=== PATIENT | female | born 1985 | race Two or more races ===

== ENCOUNTER 2019-01-15 21:28 | Emergency (ER) | payer MEDICAID ==
[~2019-01-15] VITALS: Ht 165.1 cm; Wt 90.9 kg
[2019-01-15 21:48] VITALS: BP 157/48
== END 2019-01-16 02:10 | disposition left against medical advice (07) ==
LOC: ER 21:28
DX: R42 Dizziness and giddiness (principal); Z53.21 Procedure and treatment not carried out due to patient leaving prior to being seen by health care provider

== ENCOUNTER 2019-01-23 10:21 | Emergency (ER) | payer MEDICAID ==
[~2019-01-23] VITALS: Ht 165.1 cm; Wt 93.6 kg
[2019-01-23 11:41] LABS: BASOPHILS % 1.1 % (0.0-2.0); EOSINOPHILS % 3.9 % (0.0-5.0); HEMOGLOBIN. 7.5 g/dL (12.0-16.0); LYMPHOCYTES % 20.1 % (20.0-50.0); MEAN CORPUSCULAR HEMOGLOBIN 28.2 pg (28.0-32.0); MEAN CORPUSCULAR VOLUME 89.9 fL (81.0-99.0); MEAN PLATELET VOLUME 9.7 fl (7.4-10.4); MONOCYTES % 10.7 % (2.0-8.0); NEUTROPHILS % 64.2 % (40.0-76.0); PLATELET 271 x1000/uL (130-400); RED BLOOD CELL COUNT 2.67 mill/uL (4.2-5.4); RED CELL DISTRIBUTION WIDTH 16.7 % (11.6-14.6)
[2019-01-23 11:45] LABS: CHLORIDE 108 mEq/L (98-107)
[2019-01-23 11:50] VITALS: BP 156/56
[2019-01-23 11:54] LABS: PROTHROMBIN TIME 10.3 sec (9.1-11.1)
[2019-01-23] MEDS ORDERED: OXYCODONE HCL/ACETAMINOPHEN 5/325MG TABLET PO ONE (12:30)
== END 2019-01-23 12:28 | disposition home or self-care (01) ==
LOC: ER 10:21
DX: D64.9 Anemia, unspecified (principal); E03.9 Hypothyroidism, unspecified; E11.9 Type 2 diabetes mellitus without complications; I10 Essential (primary) hypertension; Z98.890 Other specified postprocedural states; Z99.2 Dependence on renal dialysis
CPT/HCPCS: 36415; 71045; 81025; 86850; 86870; 86900; 93005; 99284

== ENCOUNTER 2019-04-23 19:49 | Inpatient (IN) | payer MEDICAID ==
[~2019-04-23] VITALS: Ht 162.8 cm; Wt 81.7 kg
[2019-04-23] MEDS ORDERED: LABETALOL 5MG/ML SYR 20 MG/4 ML SYRINGE IV ONE (21:30)
[2019-04-23 21:50] LABS: BASOPHILS % 0.9 % (0.0-2.0); CHLORIDE 101 mEq/L (98-107); EOSINOPHILS % 3.3 % (0.0-5.0); HEMATOCRIT. 41.9 % (36.0-48.0); HEMOGLOBIN. 13.6 g/dL (12.0-16.0); LYMPHOCYTES % 14.3 % (20.0-50.0); MEAN CORPUSCULAR HEMOGLOBIN 29.5 pg (28.0-32.0); MEAN CORPUSCULAR VOLUME 91.1 fL (81.0-99.0); MEAN PLATELET VOLUME 8.4 fl (7.4-10.4); MONOCYTES % 9.3 % (2.0-8.0); NEUTROPHILS % 72.2 % (40.0-76.0); PLATELET 334 x1000/uL (130-400); RED CELL DISTRIBUTION WIDTH 15.7 % (11.6-14.6)
[2019-04-23 21:52] LABS: PARTIAL THROMBOPLASTIN TIME 28.4 sec (23.4-31.0); PROTHROMBIN TIME 10.1 sec (9.6-11.0)
[2019-04-23] MEDS ORDERED: NICARDIPINE 40MG/200ML PREMIX 200 ML IV STA (21:53)
[2019-04-23 21:54] LABS: ETHANOL BLOOD < 10 mg/dL
[2019-04-23 21:56] LABS: HCG SCREEN NEGATIVE
[2019-04-23] MEDS ORDERED: NA PHOS,M-B/NA PHOS,DI-BA ENEMA 118ML PR PRN (22:45)
[2019-04-23] MEDS ORDERED: ONDANSETRON HCL 4MG/2ML INJ IV ONE (22:45)
[2019-04-23] MEDS ORDERED: MORPHINE SULFATE 4 MG/ML CPJ (NOT FOR IM USE) IV ONE (22:45)
[2019-04-23] MEDS ORDERED: LORAZEPAM 2MG/ML CPJ IV PRN (22:45)
[2019-04-23] MEDS ORDERED: MAGNESIUM/ALUMINUM HYDROXIDE/SIMETHICONE 30ML UDC PO PRN (22:45)
[2019-04-23] MEDS ORDERED: ONDANSETRON HCL 4MG/2ML INJ IV PRN (22:45)
[2019-04-23] MEDS ORDERED: ACETAMINOPHEN 325MG TABLET PO PRN (22:45)
[2019-04-23] MEDS ORDERED: DEXTROSE 50% WATER 50ML SYRINGE IV PRN (22:45)
[2019-04-23] MEDS ORDERED: ENOXAPARIN 40MG/0.4ML SYR SUBCUT SCH (22:45)
[2019-04-23] MEDS ORDERED: CLONIDINE 0.1MG TABLET PO PRN (22:45)
[2019-04-23] MEDS ORDERED: IPRATROPIUM/ALBUTEROL 0.5-3(2.5)MG/3ML NEB INH PRN (22:45)
[2019-04-23] MEDS ORDERED: DIPHENHYDRAMINE 50MG/ML VIAL IV PRN (22:45)
[2019-04-23] MEDS ORDERED: HYDRALAZINE 20MG/ML VIAL IV PRN (22:45)
[2019-04-23] MEDS ORDERED: DOCUSATE SODIUM 100MG CAPSULE PO PRN (22:45)
[2019-04-23] MEDS ORDERED: HYDROMORPHONE HCL/PF 2MG/ML CPJ IV PRN (22:45)
[2019-04-23] MEDS ORDERED: GUAIFENESIN 200MG/10ML SUGAR FREE UDC PO PRN (22:45)
[2019-04-23] MEDS ORDERED: NICARDIPINE 40MG/200ML PREMIX 200 ML IV SCH (22:45)
[2019-04-24] VITALS (94 sets, daily range): BP systolic 132–198; BP diastolic 46–128
[2019-04-24] MEDS ORDERED: SODIUM POLYSTYRENE SULFONATE 15 G/60 ML BOT PO SCH (03:00)
[2019-04-24] MEDS: SODIUM CHLORIDE 0.9% INJ 3ML FLUSH IVF SCH ×3 (05:58→22:00)
[2019-04-24 06:56] LABS: BASOPHILS % 1.2 % (0.0-2.0); EOSINOPHILS % 1.3 % (0.0-5.0); HEMATOCRIT. 41.6 % (36.0-48.0); HEMOGLOBIN. 13.2 g/dL (12.0-16.0); LYMPHOCYTES % 14.6 % (20.0-50.0); MEAN CORPUSCULAR HEMOGLOBIN 29.2 pg (28.0-32.0); MEAN PLATELET VOLUME 8.7 fl (7.4-10.4); MONOCYTES % 7.6 % (2.0-8.0); NEUTROPHILS % 75.3 % (40.0-76.0); PLATELET 302 x1000/uL (130-400); RED BLOOD CELL COUNT 4.52 mill/uL (4.2-5.4); RED CELL DISTRIBUTION WIDTH 15.8 % (11.6-14.6)
[2019-04-24 07:12] LABS: CHLORIDE 104 mEq/L (98-107)
[2019-04-24 07:25] LABS: LDL CHOLESTEROL 106 mg/dL (5-100)
[2019-04-24 07:26] LABS: CREATINE KINASE 40 IU/L (26-192); CREATINE KINASE MB FRACTION 2.9 ng/mL (0.5-3.6)
[2019-04-24 07:27] LABS: HDL CHOLESTEROL 47 mg/dL (40-59); T4 FREE 0.98 ng/dL (0.76-1.46)
[2019-04-24] MEDS: BLOOD SUGAR DIAGNOSTIC STRIP TEST SCH ×4 (07:50→21:49)
[2019-04-24] MEDS: ASPIRIN 81MG EC TABLET PO SCH (08:08)
[2019-04-24] MEDS: ENOXAPARIN 30MG/0.3ML SYR SUBCUT SCH (08:09)
[2019-04-24] MEDS: INSULIN LISPRO 100 UNITS/ML SUBCUT SCH ×4 (08:20→21:00)
[2019-04-24] MEDS ORDERED: AMLODIPINE 10MG TABLET PO SCH (09:00)
[2019-04-24] MEDS ORDERED: LOSARTAN POTASSIUM 50 MG TABLET PO SCH (09:00)
[2019-04-24] MEDS ORDERED: ALTEPLASE 2MG/VIAL ITC NR (09:15)
[2019-04-24] MEDS ORDERED: SODIUM BICARBONATE 4% (2.4MEQ) 5ML VIAL IV ONE (09:53)
[2019-04-24] MEDS ORDERED: IOHEXOL-300 100 ML BOTTLE ONE (09:53)
[2019-04-24] MEDS ORDERED: LIDOCAINE HCL 1% 20ML VIAL (Pyxis) INJ ONE (09:53)
[2019-04-24] MEDS ORDERED: IOHEXOL-350 100 ML BOTTLE ONE (10:22)
[2019-04-24] MEDS ORDERED: HEPARIN 1000 UNITS/ML 10ML ONE (11:18)
[2019-04-24] MEDS ORDERED: HEPARIN 5000 UNITS/ML VIAL IV NR (11:30)
[2019-04-24] MEDS: NICARDIPINE 50 MG in SODIUM CHLORIDE 0.9% 250 ML IV SCH (12:05)
[2019-04-24] MEDS ORDERED: HYDRALAZINE HCL 50MG TABLET PO SCH (14:00)
[2019-04-24 15:18] LABS: CREATINE KINASE 36 IU/L (26-192)
[2019-04-24] MEDS: AMLODIPINE 10MG TABLET PO SCH ×2 (15:54→15:58)
[2019-04-24] MEDS: LOSARTAN POTASSIUM 50 MG TABLET PO SCH ×3 (15:56→21:49)
[2019-04-24] MEDS: LEVOTHYROXINE SODIUM 50MCG TABLET PO SCH (15:56)
[2019-04-24] MEDS: HYDRALAZINE HCL 50MG TABLET PO SCH ×2 (15:57→18:26)
[2019-04-25] VITALS (69 sets, daily range): BP systolic 79–206; BP diastolic 51–167
[2019-04-25] MEDS: HYDROCODONE/ACETAMINOPHEN 10/325MG TABLET PO PRN ×2 (00:31→08:49)
[2019-04-25] MEDS: HYDRALAZINE HCL 50MG TABLET PO SCH ×2 (01:07→05:30)
[2019-04-25] MEDS: NICARDIPINE 50 MG in SODIUM CHLORIDE 0.9% 250 ML IV SCH ×2 (01:20→11:03)
[2019-04-25] MEDS: SODIUM CHLORIDE 0.9% INJ 3ML FLUSH IVF SCH ×2 (05:08→14:00)
[2019-04-25] MEDS: INSULIN LISPRO 100 UNITS/ML SUBCUT SCH ×3 (08:20→18:00)
[2019-04-25] MEDS: LEVOTHYROXINE SODIUM 50MCG TABLET PO SCH (08:29)
[2019-04-25] MEDS: ASPIRIN 81MG EC TABLET PO SCH (08:29)
[2019-04-25] MEDS: BLOOD SUGAR DIAGNOSTIC STRIP TEST SCH ×3 (08:30→17:50)
[2019-04-25] MEDS: ENOXAPARIN 30MG/0.3ML SYR SUBCUT SCH (08:30)
[2019-04-25] MEDS ORDERED: CARVEDILOL 25MG TABLET PO SCH (09:00)
[2019-04-25] MEDS: LOSARTAN POTASSIUM 50 MG TABLET PO SCH (09:00)
[2019-04-25] MEDS: HYDRALAZINE HCL 25MG TABLET PO SCH ×2 (12:00→18:06)
[2019-04-25] MEDS: AMLODIPINE 10MG TABLET PO SCH (18:06)
== END 2019-04-25 19:15 | disposition left against medical advice (07) | DRG 199 ==
LOC: ER 19:49 → CVICU 21:56 → EDBEDREQSVC 21:59 → EDBEDREQTM 21:59 → EDBEDREQ 21:59 → ENRESERV 23:31
PROVIDERS: ADMIT Internal Medicine; ATTEND Internal Medicine
PROC: B51W1ZZ Fluoroscopy of Dialysis Shunt/Fistula using Low Osmolar Contrast (ICD-10-PCS; principal; 2019-04-24)
DX: I16.1 Hypertensive emergency (principal); E11.22 Type 2 diabetes mellitus with diabetic chronic kidney disease; E11.649 Type 2 diabetes mellitus with hypoglycemia without coma; N18.6 End stage renal disease; E87.5 Hyperkalemia; E03.9 Hypothyroidism, unspecified; D64.9 Anemia, unspecified; I12.0 Hypertensive chronic kidney disease with stage 5 chronic kidney disease or end stage renal disease; T82.49XA Other complication of vascular dialysis catheter, initial encounter; Y84.1 Kidney dialysis as the cause of abnormal reaction of the patient, or of later complication, without mention of misadventure at the time of the procedure; Z53.21 Procedure and treatment not carried out due to patient leaving prior to being seen by health care provider; Z79.899 Other long term (current) drug therapy; Z82.49 Family history of ischemic heart disease and other diseases of the circulatory system; Z98.891 History of uterine scar from previous surgery; Z99.2 Dependence on renal dialysis; Z79.4 Long term (current) use of insulin; Y92.89 Other specified places as the place of occurrence of the external cause
CPT/HCPCS: 36415; 36901; 71045; 74174; 76937; 80061; 80320; 82550; 82553; 82962; 83036; 83880; 84439; 84443; 84484; 84703; 85379; 93005; 93306; 93970; 96365; 96375; 99291; C1760; C1766; C1769; C1887; J1644; J1650; J2270; J2405; J2997; J3490; J7050; Q9967; G0480

== ENCOUNTER 2019-10-21 10:55 | Inpatient (IN) | payer MEDICAID ==
[2019-10-21] VITALS (43 sets, daily range): BP systolic 60–147; BP diastolic 20–95
[~2019-10-21] VITALS: Ht 165.1 cm; Wt 86.3 kg
[2019-10-21] MEDS ORDERED: ONDANSETRON HCL 4MG/2ML INJ IV STA (11:15)
[2019-10-21] MEDS ORDERED: FAMOTIDINE 20MG/2ML VIAL IV STA (11:15)
[2019-10-21] MEDS ORDERED: PANTOPRAZOLE SODIUM 40 MG/VIAL IV ONE (11:45)
[2019-10-21 12:08] LABS: BASOPHILS % 0.7 % (0.0-2.0); EOSINOPHILS % 0.9 % (0.0-5.0); LYMPHOCYTES % 15.4 % (20.0-50.0); MEAN CORPUSCULAR HEMOGLOBIN 29.3 pg (28.0-32.0); MEAN CORPUSCULAR VOLUME 89.5 fL (81.0-99.0); MEAN PLATELET VOLUME 10.6 fl (7.4-10.4); MONOCYTES % 4.7 % (2.0-8.0); NEUTROPHILS % 78.3 % (40.0-76.0); PLATELET 237 x1000/uL (130-400); RED BLOOD CELL COUNT 1.55 mill/uL (4.2-5.4); RED CELL DISTRIBUTION WIDTH 16.4 % (11.6-14.6)
[2019-10-21 12:14] LABS: CHLORIDE 96 mEq/L (98-107); HEMATOCRIT. 13.9 % (36.0-48.0); HEMOGLOBIN. 4.5 g/dL (12.0-16.0)
[2019-10-21 12:15] LABS: INR 1.2; PROTHROMBIN TIME 11.9 sec (9.6-11.0)
[2019-10-21 12:17] LABS: HCG SCREEN NEGATIVE
[2019-10-21] MEDS ORDERED: DEXTROSE 50% WATER 50ML SYRINGE IV ONE (12:45)
[2019-10-21] MEDS ORDERED: SODIUM BICARBONATE 8.4% 1 MEQ/ML 50ML SYR IV ONE (12:45)
[2019-10-21] MEDS ORDERED: CALCIUM CHLORIDE 1GM/10ML SYR IV ONE (12:45)
[2019-10-21] MEDS ORDERED: INSULIN REGULAR (HUMULIN R) 300UNITS/3ML IV ONE (12:45)
[2019-10-21] MEDS ORDERED: PANTOPRAZOLE 80 MG in SODIUM CHLORIDE 0.9% 100 ML IV SCH (13:00)
[2019-10-21] MEDS ORDERED: SODIUM POLYSTYRENE SULFONATE 15 G/60 ML BOT PO ONE (13:00)
[2019-10-21] MEDS ORDERED: LORAZEPAM 0.5MG TABLET PO PRN (13:00)
[2019-10-21] MEDS ORDERED: CLONIDINE 0.1MG TABLET PO PRN (13:00)
[2019-10-21] MEDS ORDERED: IPRATROPIUM/ALBUTEROL 0.5-3(2.5)MG/3ML NEB NEB PRN (13:00)
[2019-10-21] MEDS ORDERED: ZOLPIDEM TARTRATE 5MG TABLET PO PRN (13:00)
[2019-10-21] MEDS ORDERED: DOCUSATE SODIUM 100MG CAPSULE PO PRN (13:00)
[2019-10-21] MEDS ORDERED: MAGNESIUM/ALUMINUM HYDROXIDE/SIMETHICONE 30ML UDC PO PRN (13:00)
[2019-10-21] MEDS ORDERED: GUAIFENESIN 200MG/10ML SUGAR FREE UDC PO PRN (13:00)
[2019-10-21] MEDS ORDERED: ACETAMINOPHEN 325MG TABLET PO PRN (13:00)
[2019-10-21] MEDS ORDERED: DEXTROSE 50% WATER 50ML SYRINGE IV PRN (13:00)
[2019-10-21] MEDS ORDERED: ONDANSETRON HCL 4MG/2ML INJ IV PRN (13:00)
[2019-10-21 13:06] LABS: BG FRACTION INSPIRED OXYGEN 21; BG HCO3 ACT 20.8 mmol/L (22.0-26.0); BG PCO2 34.4 mmHg (35.0-45.0); BG PO2 91.7 mmHg (75.0-100.0); BG SAMPLE SITE RIGHT BRACHIAL; BG TOTAL HEMOGLOBIN < 4.5 g/dL (12.0-18.0); BG VENT MODE ROOM AIR
[2019-10-21] MEDS: BLOOD SUGAR DIAGNOSTIC STRIP TEST SCH ×3 (13:33→20:57)
[2019-10-21] MEDS: SEVELAMER CARBONATE 800 MG TABLET PO SCH ×2 (13:50→17:00)
[2019-10-21] MEDS: DEXT 5%/LACTATED RINGERS 1,000 ML IV SCH (14:03)
[2019-10-21 14:40] LABS: FOLIC ACID (FOLATE) SERUM 9.3 ng/mL (>5.38)
[2019-10-21] MEDS: INSULIN LISPRO 100 UNITS/ML SUBCUT SCH ×2 (17:00→21:35)
[2019-10-21] MEDS: PANTOPRAZOLE SODIUM 40 MG/VIAL IV SCH (17:26)
[2019-10-21] MEDS ORDERED: DOPAMINE 400MG/250ML PREMIX 250 ML IV PRN (21:15)
[2019-10-21] MEDS ORDERED: NOREPINEPHRINE 16 MG in DEXT 5% WATER 234 ML IV PRN (21:15)
[2019-10-21 23:30] LABS: HEMOGLOBIN 8.3 g/dL (12.0-16.0)
[2019-10-21 23:45] LABS: CREATINE KINASE MB FRACTION 4.4 ng/mL (0.5-3.6)
[2019-10-22] VITALS (95 sets, daily range): BP systolic 92–155; BP diastolic 28–101
[2019-10-22] MEDS: SEVELAMER CARBONATE 800 MG TABLET PO SCH ×3 (06:00→18:21)
[2019-10-22] MEDS: BLOOD SUGAR DIAGNOSTIC STRIP TEST SCH ×4 (06:06→21:29)
[2019-10-22] MEDS: INSULIN LISPRO 100 UNITS/ML SUBCUT SCH ×4 (06:13→21:00)
[2019-10-22] MEDS: PANTOPRAZOLE SODIUM 40 MG/VIAL IV SCH ×2 (08:29→18:22)
[2019-10-22] MEDS: DIPHENHYDRAMINE 50MG/ML VIAL IV PRN (08:30)
[2019-10-22] MEDS: FOLIC ACID/VITAMIN B COMP W-C TABLET PO SCH (09:00)
[2019-10-22 09:40] LABS: BASOPHILS % 0.3 % (0.0-2.0); EOSINOPHILS % 0.1 % (0.0-5.0); LYMPHOCYTES % 13.4 % (20.0-50.0); MEAN CORPUSCULAR HEMOGLOBIN 29.6 pg (28.0-32.0); MEAN CORPUSCULAR VOLUME 87.9 fL (81.0-99.0); MEAN PLATELET VOLUME 10.3 fl (7.4-10.4); MONOCYTES % 8.1 % (2.0-8.0); NEUTROPHILS % 78.1 % (40.0-76.0); PLATELET 184 x1000/uL (130-400); RED BLOOD CELL COUNT 2.09 mill/uL (4.2-5.4); RED CELL DISTRIBUTION WIDTH 16.6 % (11.6-14.6)
[2019-10-22 09:48] LABS: HEMATOCRIT. 18.4 % (36.0-48.0); HEMOGLOBIN. 6.2 g/dL (12.0-16.0)
[2019-10-22] MEDS: DEXT 5%/LACTATED RINGERS 1,000 ML IV SCH (13:46)
[2019-10-22 15:50] LABS: CLARITY URINE CLEAR (CLEAR); COLOR URINE YELLOW (YELLOW); KETONES URINE NEGATIVE (NEGATIVE); LEUKOCYTE ESTERASE URINE NEGATIVE (NEGATIVE); NITRITE URINE NEGATIVE (NEGATIVE); OCCULT BLOOD URINE NEGATIVE (NEGATIVE); PH URINE >=9.0 (4.5-8.0); PROTEIN URINE NEGATIVE (NEGATIVE); SPECIFIC GRAVITY URINE 1.005 (1.005-1.030); UROBILINOGEN URINE 0.2 E.U./dL (0.2-1.0)
[2019-10-22 16:10] LABS: *AMPHETAMINES SCREEN URINE NEGATIVE (NEGATIVE); *BARBITURATES SCREEN URINE NEGATIVE (NEGATIVE); *BENZODIAZEPINES SCREEN URINE NEGATIVE (NEGATIVE)
[2019-10-22 16:11] LABS: *COCAINE SCREEN URINE NEGATIVE (NEGATIVE); CANNABINOID URINE SCREEN NEGATIVE (NEGATIVE); METHADONE URINE SCREEN NEGATIVE (NEGATIVE); OPIATES URINE SCREEN NEGATIVE (NEGATIVE); PHENCYCLIDINE URINE SCREEN NEGATIVE (NEGATIVE)
[2019-10-22 17:09] LABS: HEMATOCRIT 26.1 % (36.0-48.0); HEMOGLOBIN 8.8 g/dL (12.0-16.0)
[2019-10-22] MEDS ORDERED: FENTANYL CITRATE/PF 50MCG/ML 2ML VIAL ONE (17:22)
[2019-10-22] MEDS ORDERED: MIDAZOLAM HCL 5 MG/5 ML VIAL ONE (17:22)
[2019-10-22] MEDS ORDERED: FENTANYL CITRATE/PF 50MCG/ML 2ML VIAL IV PRN (17:43)
[2019-10-22] MEDS ORDERED: MIDAZOLAM HCL 5 MG/5 ML VIAL IV PRN (17:44)
[2019-10-22] MEDS ORDERED: EPOETIN ALFA 10000UNITS/ML VIAL SUBCUT SCH (21:00)
[2019-10-22] MEDS: SUCRALFATE 1 G/10 ML UDC PO SCH (21:29)
[2019-10-22] MEDS: METOCLOPRAMIDE HCL 10MG/2ML VIAL IV SCH (21:29)
[2019-10-23] VITALS (21 sets, daily range): BP systolic 104–170; BP diastolic 41–111
[2019-10-23 00:36] LABS: HEMOGLOBIN 7.8 g/dL (12.0-16.0)
[2019-10-23 05:33] LABS: BASOPHILS % 0.7 % (0.0-2.0); EOSINOPHILS % 1.4 % (0.0-5.0); HEMATOCRIT. 23.3 % (36.0-48.0); LYMPHOCYTES % 22.6 % (20.0-50.0); MEAN CORPUSCULAR HEMOGLOBIN 30.1 pg (28.0-32.0); MEAN CORPUSCULAR VOLUME 87.2 fL (81.0-99.0); MEAN PLATELET VOLUME 9.8 fl (7.4-10.4); MONOCYTES % 14.3 % (2.0-8.0); PLATELET 180 x1000/uL (130-400); RED BLOOD CELL COUNT 2.67 mill/uL (4.2-5.4); RED CELL DISTRIBUTION WIDTH 16.5 % (11.6-14.6)
[2019-10-23] MEDS: BLOOD SUGAR DIAGNOSTIC STRIP TEST SCH (06:23)
[2019-10-23] MEDS: SUCRALFATE 1 G/10 ML UDC PO SCH (06:30)
[2019-10-23] MEDS: METOCLOPRAMIDE HCL 10MG/2ML VIAL IV SCH (06:30)
[2019-10-23] MEDS: INSULIN LISPRO 100 UNITS/ML SUBCUT SCH (06:53)
[2019-10-23] MEDS: PANTOPRAZOLE SODIUM 40 MG/VIAL IV SCH (07:14)
[2019-10-23] MEDS: DIPHENHYDRAMINE 50MG/ML VIAL IV PRN (07:14)
[2019-10-23] MEDS: FOLIC ACID/VITAMIN B COMP W-C TABLET PO SCH (07:18)
[2019-10-23] MEDS: SEVELAMER CARBONATE 800 MG TABLET PO SCH (07:23)
== END 2019-10-23 08:05 | disposition left against medical advice (07) | DRG 241 ==
LOC: ER 11:08 → EDBEDREQSVC 12:22 → EDBEDREQ 12:22 → EDBEDREQTM 12:22 → EDBEDREQSVC 12:25 → EDBEDREQ 12:25 → MICUNO 12:38 → EDBEDREQ 13:03 → EDBEDREQTM 13:03 → ENRESERV 15:19 → MICUNO 22:28
PROVIDERS: ADMIT Internal Medicine; ATTEND Internal Medicine
PROC: 30233N1 Transfusion of Nonautologous Red Blood Cells into Peripheral Vein, Percutaneous Approach (ICD-10-PCS; principal; 2019-10-21)
PROC: 5A1D70Z Performance of Urinary Filtration, Intermittent, Less than 6 Hours Per Day (ICD-10-PCS; 2019-10-21)
PROC: 0DB68ZX Excision of Stomach, Via Natural or Artificial Opening Endoscopic, Diagnostic (ICD-10-PCS; 2019-10-22)
DX: K29.01 Acute gastritis with bleeding (principal); E43 Unspecified severe protein-calorie malnutrition; E11.22 Type 2 diabetes mellitus with diabetic chronic kidney disease; D62 Acute posthemorrhagic anemia; E83.51 Hypocalcemia; E83.39 Other disorders of phosphorus metabolism; K26.4 Chronic or unspecified duodenal ulcer with hemorrhage; I13.11 Hypertensive heart and chronic kidney disease without heart failure, with stage 5 chronic kidney disease, or end stage renal disease; E87.5 Hyperkalemia; N18.6 End stage renal disease; Z53.29 Procedure and treatment not carried out because of patient's decision for other reasons; K29.51 Unspecified chronic gastritis with bleeding; E03.9 Hypothyroidism, unspecified; K29.80 Duodenitis without bleeding; Z79.4 Long term (current) use of insulin; Z91.19 Patient's noncompliance with other medical treatment and regimen; Z98.891 History of uterine scar from previous surgery; Z99.2 Dependence on renal dialysis; Z68.31 Body mass index [BMI] 31.0-31.9, adult
CPT/HCPCS: 36415; 36600; 71045; 80048; 80053; 80061; 80305; 81003; 82375; 82550; 82553; 82607; 82746; 82805; 82962; 83036; 83540; 83550; 83735; 84100; 84132; 84443; 84484; 84703; 85014; 85018; 85025; 86850; 86870; 86900; 86920; 88305; 88312; 88313; 93005; 93970; 96374; 96375; 99291; C9113; J0885; J1200; J1815; J2250; J2405; J2765; J3010; J3490; J7040; P9016

== ENCOUNTER 2020-01-03 23:23 | Inpatient (IN) | payer MEDICAID ==
[~2020-01-03] VITALS: Ht 165.1 cm; Wt 88.5 kg
[2020-01-04 01:16] LABS: BASOPHILS % 0.9 % (0.0-2.0); HEMATOCRIT. 39.4 % (36.0-48.0); HEMOGLOBIN. 12.8 g/dL (12.0-16.0); LYMPHOCYTES % 18.9 % (20.0-50.0); MEAN CORPUSCULAR HEMOGLOBIN 29.9 pg (28.0-32.0); MEAN CORPUSCULAR VOLUME 92.6 fL (81.0-99.0); MEAN PLATELET VOLUME 9.8 fl (7.4-10.4); MONOCYTES % 10.4 % (2.0-8.0); NEUTROPHILS % 66.8 % (40.0-76.0); PLATELET 89 x1000/uL (130-400); RED BLOOD CELL COUNT 4.26 mill/uL (4.2-5.4); RED CELL DISTRIBUTION WIDTH 15.9 % (11.6-14.6)
[2020-01-04] MEDS ORDERED: SODIUM BICARBONATE 8.4% 1 MEQ/ML 50ML SYR IV NR (01:45)
[2020-01-04] MEDS ORDERED: INSULIN REGULAR (HUMULIN R) 300UNITS/3ML IV NR (01:45)
[2020-01-04] MEDS ORDERED: CALCIUM CHLORIDE 1GM/10ML SYR IV NR (01:45)
[2020-01-04] MEDS ORDERED: DEXTROSE 50% WATER 50ML SYRINGE IV NR (01:45)
[2020-01-04 02:04] LABS: CHLORIDE 99 mEq/L (98-107)
[2020-01-04] MEDS ORDERED: CLONIDINE 0.3MG TABLET PO ONE (05:30)
[2020-01-04 09:25] VITALS: BP 200/73
[2020-01-04 09:28] VITALS: BP 200/73
[2020-01-04] MEDS ORDERED: AMLO10TA80 PO (10:42)
[2020-01-04] MEDS ORDERED: CARV25TA47 PO (10:42)
[2020-01-04] MEDS ORDERED: LOSA50TA41 PO (10:42)
[2020-01-04] MEDS ORDERED: HYDR-4135 PO (10:42)
[2020-01-04] MEDS ORDERED: LORAZEPAM 2MG/ML CPJ IV PRN (11:15)
[2020-01-04] MEDS ORDERED: DIPHENHYDRAMINE 50MG/ML VIAL IV PRN (11:15)
[2020-01-04] MEDS ORDERED: ONDANSETRON HCL 4MG/2ML INJ IV PRN (11:15)
[2020-01-04] MEDS ORDERED: NA PHOS,M-B/NA PHOS,DI-BA ENEMA 118ML PR PRN (11:15)
[2020-01-04] MEDS ORDERED: IPRATROPIUM/ALBUTEROL 0.5-3(2.5)MG/3ML NEB NEB PRN (11:15)
[2020-01-04] MEDS ORDERED: MORPHINE SULFATE 2 MG/ML CPJ (NOT FOR IM USE) IV PRN (11:15)
[2020-01-04] MEDS ORDERED: DEXTROSE 50% WATER 50ML SYRINGE IV PRN (11:15)
[2020-01-04] MEDS ORDERED: DOCUSATE SODIUM 100MG CAPSULE PO PRN (11:15)
[2020-01-04] MEDS ORDERED: GUAIFENESIN 200MG/10ML SUGAR FREE UDC PO PRN (11:15)
[2020-01-04] MEDS ORDERED: MAGNESIUM/ALUMINUM HYDROXIDE/SIMETHICONE 30ML UDC PO PRN (11:15)
[2020-01-04] MEDS ORDERED: ACETAMINOPHEN 325MG TABLET PO PRN (11:15)
[2020-01-04] MEDS ORDERED: ENOXAPARIN 40MG/0.4ML SYR SUBCUT SCH (11:15)
[2020-01-04] MEDS ORDERED: HYDROCODONE/ACETAMINOPHEN 10/325MG TABLET PO PRN (11:15)
[2020-01-04] MEDS: BLOOD SUGAR DIAGNOSTIC STRIP TEST SCH ×3 (11:53→21:00)
[2020-01-04] MEDS: INSULIN LISPRO 100 UNITS/ML SUBCUT SCH ×3 (11:54→21:00)
[2020-01-04 12:00] VITALS: BP 194/85
[2020-01-04] MEDS: SODIUM CHLORIDE 0.9% INJ 3ML FLUSH IVF SCH ×2 (14:00→22:41)
[2020-01-04 16:00] VITALS: BP_SYST 126
[2020-01-04 16:06] LABS: CREATINE KINASE 54 IU/L (26-192)
[2020-01-04 16:09] LABS: CREATINE KINASE MB FRACTION 2.7 ng/mL (0.5-3.6)
[2020-01-04] MEDS: SUCRALFATE 1 G/10 ML UDC PO SCH ×2 (17:11→21:00)
[2020-01-04] MEDS: OMEPRAZOLE 20MG CAPSULE EXTENDED RELEASE PO SCH (17:11)
[2020-01-04] MEDS: HYDRALAZINE 20MG/ML VIAL IV PRN (17:12)
[2020-01-04 22:23] VITALS: BP 183/73
[2020-01-04] MEDS: CLONIDINE 0.1MG TABLET PO PRN (22:32)
[2020-01-05] VITALS: BP 165/69
[2020-01-05 00:26] LABS: CREATINE KINASE MB FRACTION 1.5 ng/mL (0.5-3.6)
[2020-01-05 04:00] VITALS: BP 207/65
[2020-01-05] MEDS: HYDRALAZINE 20MG/ML VIAL IV PRN (05:30)
[2020-01-05] MEDS: OMEPRAZOLE 20MG CAPSULE EXTENDED RELEASE PO SCH (06:36)
[2020-01-05] MEDS: SODIUM CHLORIDE 0.9% INJ 3ML FLUSH IVF SCH (06:42)
[2020-01-05] MEDS: INSULIN LISPRO 100 UNITS/ML SUBCUT SCH (06:43)
[2020-01-05] MEDS: SUCRALFATE 1 G/10 ML UDC PO SCH (06:43)
[2020-01-05] MEDS: BLOOD SUGAR DIAGNOSTIC STRIP TEST SCH (06:43)
[2020-01-05 06:48] VITALS: BP 185/76
[2020-01-05 07:20] LABS: CHLORIDE 103 mEq/L (98-107)
[2020-01-05 07:28] LABS: BASOPHILS % 1.5 % (0.0-2.0); EOSINOPHILS % 3.9 % (0.0-5.0); HEMATOCRIT. 36.5 % (36.0-48.0); HEMOGLOBIN. 12.1 g/dL (12.0-16.0); LYMPHOCYTES % 19.7 % (20.0-50.0); MEAN CORPUSCULAR HEMOGLOBIN 30.2 pg (28.0-32.0); MEAN CORPUSCULAR VOLUME 91.6 fL (81.0-99.0); MEAN PLATELET VOLUME 10.1 fl (7.4-10.4); MONOCYTES % 11.1 % (2.0-8.0); NEUTROPHILS % 63.8 % (40.0-76.0); PLATELET 224 x1000/uL (130-400); RED BLOOD CELL COUNT 3.99 mill/uL (4.2-5.4); RED CELL DISTRIBUTION WIDTH 15.6 % (11.6-14.6)
[2020-01-05 08:00] VITALS: BP 190/63
[2020-01-05] MEDS ORDERED: CARVEDILOL 12.5MG TABLET PO SCH (09:00)
[2020-01-05] MEDS ORDERED: AMLODIPINE 10MG TABLET PO SCH (09:00)
[2020-01-05] MEDS: CLONIDINE 0.1MG TABLET PO PRN (09:18)
[2020-01-05] MEDS ORDERED: ENOXAPARIN 30MG/0.3ML SYR SUBCUT SCH (10:00)
[2020-01-05 10:26] VITALS: BP 190/63
[2020-01-05 10:30] VITALS: BP 193/74
[2020-01-05] MEDS ORDERED: HYDRALAZINE HCL 50MG TABLET PO SCH (14:00)
== END 2020-01-05 11:05 | disposition home or self-care (01) | DRG 241 ==
LOC: ER 23:23 → 6WST 01-04 02:30 → EDBEDREQTM 01-04 02:32 → EDBEDREQ 01-04 02:32 → CANRESERV 01-04 07:37 → ENRESERV 01-04 07:37
PROVIDERS: ADMIT Internal Medicine; ATTEND Internal Medicine
PROC: 5A1D70Z Performance of Urinary Filtration, Intermittent, Less than 6 Hours Per Day (ICD-10-PCS; principal; 2020-01-04)
DX: K29.70 Gastritis, unspecified, without bleeding (principal); I12.0 Hypertensive chronic kidney disease with stage 5 chronic kidney disease or end stage renal disease; E10.22 Type 1 diabetes mellitus with diabetic chronic kidney disease; E44.0 Moderate protein-calorie malnutrition; E87.5 Hyperkalemia; R16.0 Hepatomegaly, not elsewhere classified; K80.20 Calculus of gallbladder without cholecystitis without obstruction; N18.6 End stage renal disease; Z79.4 Long term (current) use of insulin; Z79.899 Other long term (current) drug therapy; Z87.11 Personal history of peptic ulcer disease; Z91.19 Patient's noncompliance with other medical treatment and regimen; Z98.891 History of uterine scar from previous surgery; Z99.2 Dependence on renal dialysis; Z68.32 Body mass index [BMI] 32.0-32.9, adult
CPT/HCPCS: 36415; 76705; 80053; 80076; 82248; 82550; 82553; 82962; 83605; 84484; 85025; 99285; J0360; J1815; J2270; J3490

== ENCOUNTER 2020-02-14 09:16 | Inpatient (IN) | payer MEDICAID ==
[~2020-02-14] VITALS: Ht 165.1 cm; Wt 82.6 kg
[~2020-02-14 09:16] MED LIST: AMLO10TA80 PO; CARV25TA47 PO; HYDR-4135 PO; LOSA50TA41 PO
[2020-02-14] MEDS ORDERED: PANTOPRAZOLE SODIUM 40 MG/VIAL IV ONE (10:15)
[2020-02-14 10:29] LABS: BASOPHILS % 1.1 % (0.0-2.0); EOSINOPHILS % 2.3 % (0.0-5.0); HEMATOCRIT. 22.7 % (36.0-48.0); HEMOGLOBIN. 7.5 g/dL (12.0-16.0); LYMPHOCYTES % 19.8 % (20.0-50.0); MEAN CORPUSCULAR HEMOGLOBIN 29.5 pg (28.0-32.0); MEAN CORPUSCULAR VOLUME 89.6 fL (81.0-99.0); MEAN PLATELET VOLUME 9.3 fl (7.4-10.4); MONOCYTES % 8.9 % (2.0-8.0); NEUTROPHILS % 67.9 % (40.0-76.0); PLATELET 272 x1000/uL (130-400); RED BLOOD CELL COUNT 2.54 mill/uL (4.2-5.4); RED CELL DISTRIBUTION WIDTH 16.5 % (11.6-14.6)
[2020-02-14 10:32] LABS: CHLORIDE 95 mEq/L (98-107)
[2020-02-14] MEDS ORDERED: DEXTROSE 50% WATER 50ML SYRINGE IV NR (11:30)
[2020-02-14] MEDS ORDERED: SODIUM BICARBONATE 8.4% 1 MEQ/ML 50ML SYR IV NR (11:30)
[2020-02-14] MEDS ORDERED: INSULIN REGULAR (HUMULIN R) 300UNITS/3ML IV NR (11:30)
[2020-02-14] MEDS ORDERED: ALBUTEROL (0.083%) 2.5MG/3ML NEB HHN NR (11:30)
[2020-02-14] MEDS ORDERED: CALCIUM CHLORIDE 1GM/10ML SYR IV NR (11:30)
[2020-02-14] MEDS ORDERED: GUAIFENESIN 200MG/10ML SUGAR FREE UDC PO PRN (12:45)
[2020-02-14] MEDS ORDERED: TRAMADOL 50MG TABLET PO PRN (12:45)
[2020-02-14] MEDS ORDERED: ACETAMINOPHEN 325MG TABLET PO PRN ×2 (12:45)
[2020-02-14] MEDS ORDERED: IPRATROPIUM/ALBUTEROL 0.5-3(2.5)MG/3ML NEB ORI PRN (12:45)
[2020-02-14] MEDS ORDERED: DOCUSATE SODIUM 100MG CAPSULE PO PRN (12:45)
[2020-02-14] MEDS ORDERED: ZOLPIDEM TARTRATE 5MG TABLET PO PRN (12:45)
[2020-02-14] MEDS ORDERED: ONDANSETRON HCL 4MG/2ML INJ IV PRN (12:45)
[2020-02-14] MEDS ORDERED: CLONIDINE 0.1MG TABLET PO PRN (12:45)
[2020-02-14] MEDS ORDERED: MAGNESIUM/ALUMINUM HYDROXIDE/SIMETHICONE 30ML UDC PO PRN (12:45)
[2020-02-14] MEDS ORDERED: DEXTROSE 50% WATER 50ML SYRINGE IV PRN (12:45)
[2020-02-14 12:56] LABS: INR 1.1; PROTHROMBIN TIME 11.4 sec (9.6-11.0)
[2020-02-14 17:00] VITALS: BP 120/72
[2020-02-14] MEDS: SUCRALFATE 1 G/10 ML UDC PO SCH ×3 (18:00→22:37)
[2020-02-14] MEDS ORDERED: LEVOTHYROXINE SODIUM 125MCG TABLET PO NR (18:00)
[2020-02-14] MEDS: SEVELAMER CARBONATE 800 MG TABLET PO SCH (18:13)
[2020-02-14] MEDS: BLOOD SUGAR DIAGNOSTIC STRIP TEST SCH ×2 (18:14→21:00)
[2020-02-14] MEDS: INSULIN LISPRO 100 UNITS/ML SUBCUT SCH ×2 (18:14→21:00)
[2020-02-14] MEDS: DEXT 5%/LACTATED RINGERS 1,000 ML IV SCH (18:59)
[2020-02-14 20:00] VITALS: BP 166/79
[2020-02-14] MEDS: PANTOPRAZOLE SODIUM 40 MG/VIAL IV SCH (21:00)
[2020-02-14] MEDS ORDERED: DOXAZOSIN MESYLATE 4MG TABLET PO SCH (21:00)
[2020-02-15] VITALS (7 sets, daily range): BP systolic 128–185; BP diastolic 51–82
[2020-02-15] MEDS: BLOOD SUGAR DIAGNOSTIC STRIP TEST SCH ×3 (06:20→17:20)
[2020-02-15] MEDS: SUCRALFATE 1 G/10 ML UDC PO SCH ×3 (06:20→17:20)
[2020-02-15 07:43] LABS: CHLORIDE 100 mEq/L (98-107)
[2020-02-15] MEDS: INSULIN LISPRO 100 UNITS/ML SUBCUT SCH ×3 (07:50→17:50)
[2020-02-15 07:57] LABS: BASOPHILS % 1.2 % (0.0-2.0); EOSINOPHILS % 3.6 % (0.0-5.0); LYMPHOCYTES % 18.3 % (20.0-50.0); MEAN CORPUSCULAR HEMOGLOBIN 29.5 pg (28.0-32.0); MEAN CORPUSCULAR VOLUME 91.3 fL (81.0-99.0); MEAN PLATELET VOLUME 9.3 fl (7.4-10.4); MONOCYTES % 8.1 % (2.0-8.0); NEUTROPHILS % 68.8 % (40.0-76.0); PLATELET 223 x1000/uL (130-400); RED BLOOD CELL COUNT 2.03 mill/uL (4.2-5.4); RED CELL DISTRIBUTION WIDTH 16.5 % (11.6-14.6)
[2020-02-15 07:58] LABS: TOTAL IRON BINDING CAPACITY 136 ug/dL (250-450)
[2020-02-15 08:10] LABS: HEMATOCRIT. 18.6 % (36.0-48.0)
[2020-02-15] MEDS ORDERED: LOSARTAN POTASSIUM 50 MG TABLET PO SCH (09:00)
[2020-02-15] MEDS: PANTOPRAZOLE SODIUM 40 MG/VIAL IV SCH (09:54)
[2020-02-15] MEDS: SEVELAMER CARBONATE 800 MG TABLET PO SCH ×3 (09:55→18:36)
[2020-02-15] MEDS: DEXT 5%/LACTATED RINGERS 1,000 ML IV SCH (11:20)
[2020-02-15 12:00] LABS: UCG SCREEN NEGATIVE
[2020-02-15] MEDS ORDERED: HEPARIN SODIUM 1,000 UNIT/1ML VIAL IV SCH (14:15)
[2020-02-15 16:27] LABS: BASOPHILS % 1.1 % (0.0-2.0); EOSINOPHILS % 3.6 % (0.0-5.0); HEMATOCRIT. 27.3 % (36.0-48.0); HEMOGLOBIN. 9.1 g/dL (12.0-16.0); LYMPHOCYTES % 17.7 % (20.0-50.0); MEAN CORPUSCULAR HEMOGLOBIN 29.9 pg (28.0-32.0); MEAN CORPUSCULAR VOLUME 90.2 fL (81.0-99.0); MEAN PLATELET VOLUME 8.9 fl (7.4-10.4); MONOCYTES % 9.2 % (2.0-8.0); NEUTROPHILS % 68.4 % (40.0-76.0); PLATELET 225 x1000/uL (130-400); RED BLOOD CELL COUNT 3.03 mill/uL (4.2-5.4); RED CELL DISTRIBUTION WIDTH 16.2 % (11.6-14.6)
== END 2020-02-15 20:15 | disposition left against medical advice (07) | DRG 254 ==
LOC: ER 09:16 → 6WST 12:29 → ENRESERV 15:28
PROVIDERS: ADMIT Internal Medicine; ATTEND Internal Medicine
PROC: 30233N1 Transfusion of Nonautologous Red Blood Cells into Peripheral Vein, Percutaneous Approach (ICD-10-PCS; principal; 2020-02-15)
DX: K92.1 Melena (principal); E11.22 Type 2 diabetes mellitus with diabetic chronic kidney disease; E44.0 Moderate protein-calorie malnutrition; E83.51 Hypocalcemia; I12.0 Hypertensive chronic kidney disease with stage 5 chronic kidney disease or end stage renal disease; D62 Acute posthemorrhagic anemia; E87.5 Hyperkalemia; N18.6 End stage renal disease; K80.20 Calculus of gallbladder without cholecystitis without obstruction; H43.391 Other vitreous opacities, right eye; K29.50 Unspecified chronic gastritis without bleeding; Z53.29 Procedure and treatment not carried out because of patient's decision for other reasons; D63.8 Anemia in other chronic diseases classified elsewhere; E03.9 Hypothyroidism, unspecified; Z79.899 Other long term (current) drug therapy; Z98.891 History of uterine scar from previous surgery; Z87.11 Personal history of peptic ulcer disease; Z68.30 Body mass index [BMI] 30.0-30.9, adult; Z99.2 Dependence on renal dialysis; Z83.3 Family history of diabetes mellitus; Z56.0 Unemployment, unspecified; Z91.19 Patient's noncompliance with other medical treatment and regimen
CPT/HCPCS: 36415; 80053; 81025; 82728; 82962; 83036; 83540; 83550; 85025; 86850; 86870; 86900; 86920; 93005; 93970; 99285; C9113; J1815; J3490; P9016

== ENCOUNTER 2020-02-17 07:03 | Inpatient (IN) | payer MEDICAID ==
[~2020-02-17] VITALS: Ht 165.1 cm; Wt 83.5 kg
[2020-02-17] MEDS ORDERED: MORPHINE SULFATE 4 MG/ML CPJ (NOT FOR IM USE) IV STA (07:40)
[2020-02-17] MEDS ORDERED: ONDANSETRON HCL 4MG/2ML INJ IV STA (07:40)
[2020-02-17] MEDS ORDERED: PANTOPRAZOLE SODIUM 40 MG/VIAL IV STA (07:40)
[2020-02-17 08:15] LABS: CHLORIDE 105 mEq/L (98-107)
[2020-02-17 08:16] LABS: INR 0.9
[2020-02-17 08:19] LABS: BASOPHILS % 1.2 % (0.0-2.0); EOSINOPHILS % 4.4 % (0.0-5.0); HEMATOCRIT. 26.1 % (36.0-48.0); HEMOGLOBIN. 8.7 g/dL (12.0-16.0); LYMPHOCYTES % 13.7 % (20.0-50.0); MEAN CORPUSCULAR HEMOGLOBIN 30.7 pg (28.0-32.0); MEAN CORPUSCULAR VOLUME 92.7 fL (81.0-99.0); MEAN PLATELET VOLUME 9.1 fl (7.4-10.4); MONOCYTES % 8.3 % (2.0-8.0); NEUTROPHILS % 72.4 % (40.0-76.0); PLATELET 256 x1000/uL (130-400); RED BLOOD CELL COUNT 2.82 mill/uL (4.2-5.4); RED CELL DISTRIBUTION WIDTH 16.4 % (11.6-14.6)
[2020-02-17 08:26] LABS: PHOSPHORUS 8.8 mg/dL (2.5-4.9)
[2020-02-17] MEDS ORDERED: SODIUM BICARBONATE 8.4% 1 MEQ/ML 50ML SYR IV ONE (09:00)
[2020-02-17] MEDS ORDERED: DEXTROSE 50% WATER 50ML SYRINGE IV ONE ×2 (09:00→18:45)
[2020-02-17] MEDS ORDERED: INSULIN REGULAR (HUMULIN R) 300UNITS/3ML IV ONE (09:00)
[2020-02-17 09:03] LABS: HCG SCREEN NEGATIVE
[2020-02-17] MEDS ORDERED: ONDANSETRON HCL 4MG/2ML INJ IV PRN (15:00)
[2020-02-17] MEDS ORDERED: IPRATROPIUM/ALBUTEROL 0.5-3(2.5)MG/3ML NEB HHN PRN (15:00)
[2020-02-17] MEDS ORDERED: ACETAMINOPHEN 325MG TABLET PO PRN (15:00)
[2020-02-17] MEDS ORDERED: LORAZEPAM 0.5MG TABLET PO PRN (15:00)
[2020-02-17] MEDS ORDERED: CLONIDINE 0.1MG TABLET PO PRN (15:00)
[2020-02-17] MEDS ORDERED: MORPHINE SULFATE 2 MG/ML CPJ (NOT FOR IM USE) IV PRN (15:00)
[2020-02-17] MEDS ORDERED: CEFTRIAXONE 1 G PREMIX 50 ML IV NR (15:45)
[2020-02-17 15:47] LABS: PROTHROMBIN TIME 10.4 sec (9.6-11.0)
[2020-02-17 15:48] LABS: AMYLASE 83 IU/L (25-115)
[2020-02-17] MEDS: LACTATED RINGERS 1,000 ML IV SCH (15:52)
[2020-02-17] MEDS: AMLODIPINE 10MG TABLET PO SCH (18:00)
[2020-02-17] MEDS ORDERED: INSULIN REGULAR (HUMULIN R) UD 100 UNITS/ML SYR IV ONE (18:45)
[2020-02-17 20:00] VITALS: BP_SYST 141; BP_SYST 149; BP_DIAS 58; BP_DIAS 61; BP_DIAS 64
[2020-02-17] MEDS ORDERED: INSULIN REGULAR (HUMULIN R) UD 100 UNITS/ML SYR IV NR (20:00)
[2020-02-17] MEDS ORDERED: DEXTROSE 50% WATER 50ML SYRINGE IV NR (20:00)
[2020-02-17] MEDS: SUCRALFATE 1G TABLET PO SCH (21:12)
[2020-02-17] MEDS: PANTOPRAZOLE SODIUM 40 MG/VIAL IV SCH (21:12)
[2020-02-17] MEDS: LOSARTAN POTASSIUM 50 MG TABLET PO SCH (21:13)
[2020-02-17] MEDS: CARVEDILOL 12.5MG TABLET PO SCH (21:14)
[2020-02-17] MEDS: HYDRALAZINE HCL 50MG TABLET PO SCH (21:14)
[2020-02-18] VITALS (19 sets, daily range): BP systolic 141–193; BP diastolic 49–80
[2020-02-18] MEDS: LACTATED RINGERS 1,000 ML IV SCH ×3 (04:20→17:15)
[2020-02-18 06:01] LABS: BASOPHILS % 1.2 % (0.0-2.0); HEMATOCRIT. 23.4 % (36.0-48.0); HEMOGLOBIN. 7.9 g/dL (12.0-16.0); LYMPHOCYTES % 14.6 % (20.0-50.0); MEAN CORPUSCULAR HEMOGLOBIN 30.8 pg (28.0-32.0); MEAN CORPUSCULAR VOLUME 91.1 fL (81.0-99.0); MEAN PLATELET VOLUME 9.3 fl (7.4-10.4); MONOCYTES % 8.6 % (2.0-8.0); NEUTROPHILS % 70.6 % (40.0-76.0); PLATELET 238 x1000/uL (130-400); RED BLOOD CELL COUNT 2.57 mill/uL (4.2-5.4); RED CELL DISTRIBUTION WIDTH 16.4 % (11.6-14.6)
[2020-02-18] MEDS: SUCRALFATE 1G TABLET PO SCH ×4 (06:48→20:25)
[2020-02-18] MEDS ORDERED: IOHEXOL-300 100 ML BOTTLE ONE (08:52)
[2020-02-18] MEDS ORDERED: LIDOCAINE HCL 1% 20ML VIAL (Pyxis) INJ ONE (08:52)
[2020-02-18] MEDS ORDERED: SODIUM BICARBONATE 4% (2.4MEQ) 5ML VIAL IV ONE (08:52)
[2020-02-18] MEDS ORDERED: FENTANYL CITRATE/PF 50MCG/ML 2ML VIAL ONE ×2 (08:58→12:38)
[2020-02-18] MEDS: LOSARTAN POTASSIUM 50 MG TABLET PO SCH ×2 (09:00→20:26)
[2020-02-18] MEDS: CARVEDILOL 12.5MG TABLET PO SCH ×2 (09:00→20:25)
[2020-02-18] MEDS: PANTOPRAZOLE SODIUM 40 MG/VIAL IV SCH ×2 (09:00→20:26)
[2020-02-18] MEDS: AMLODIPINE 10MG TABLET PO SCH (09:00)
[2020-02-18] MEDS: HYDRALAZINE HCL 50MG TABLET PO SCH ×4 (09:00→20:25)
[2020-02-18] MEDS ORDERED: FENTANYL CITRATE/PF 50MCG/ML 2ML VIAL IV ONE (10:00)
[2020-02-18] MEDS ORDERED: MIDAZOLAM HCL 5 MG/5 ML VIAL ONE (12:38)
[2020-02-18] MEDS ORDERED: FENTANYL CITRATE/PF 50MCG/ML 2ML VIAL IV PRN (12:53)
[2020-02-18] MEDS ORDERED: MIDAZOLAM HCL 2 MG/2 ML VIAL IV PRN (12:54)
[2020-02-18] MEDS ORDERED: CEFTRIAXONE 1 G PREMIX 50 ML IV SCH (14:00)
[2020-02-19] VITALS: BP 148/64
[2020-02-19 04:00] VITALS: BP 155/68
[2020-02-19] MEDS: LACTATED RINGERS 1,000 ML IV SCH (05:00)
[2020-02-19] MEDS: SUCRALFATE 1G TABLET PO SCH (05:05)
[2020-02-19 07:09] LABS: BASOPHILS % 1.2 % (0.0-2.0); EOSINOPHILS % 6.7 % (0.0-5.0); HEMATOCRIT. 24.1 % (36.0-48.0); LYMPHOCYTES % 20.5 % (20.0-50.0); MEAN CORPUSCULAR HEMOGLOBIN 30.4 pg (28.0-32.0); MEAN CORPUSCULAR VOLUME 91.9 fL (81.0-99.0); MEAN PLATELET VOLUME 9.4 fl (7.4-10.4); MONOCYTES % 11.2 % (2.0-8.0); NEUTROPHILS % 60.4 % (40.0-76.0); PLATELET 262 x1000/uL (130-400); RED BLOOD CELL COUNT 2.62 mill/uL (4.2-5.4); RED CELL DISTRIBUTION WIDTH 16.4 % (11.6-14.6)
[2020-02-19] MEDS: PANTOPRAZOLE SODIUM 40 MG/VIAL IV SCH (09:29)
[2020-02-19] MEDS: HYDRALAZINE HCL 50MG TABLET PO SCH (09:30)
[2020-02-19] MEDS: AMLODIPINE 10MG TABLET PO SCH (09:30)
[2020-02-19] MEDS: LOSARTAN POTASSIUM 50 MG TABLET PO SCH (09:30)
[2020-02-19] MEDS: CARVEDILOL 12.5MG TABLET PO SCH (09:30)
[2020-02-19] MEDS ORDERED: SUCR1TAB30 MT ×2 (11:08→11:10)
[2020-02-19] MEDS ORDERED: OMEP20TA15 MT ×2 (11:09→11:12)
[2020-02-19] MEDS ORDERED: OMEP20TA15 PO (11:13)
[2020-02-19 11:15] VITALS: BP 183/77
== END 2020-02-19 11:43 | disposition home or self-care (01) | DRG 951 ==
LOC: ER 07:03 → 6WST 08:25 → EDBEDREQ 08:35 → EDBEDREQTM 08:35 → ENRESERV 14:33 → CANRESERV 14:33 → ENRESERV 16:01
PROVIDERS: ADMIT Internal Medicine; ATTEND Internal Medicine
PROC: 5A1D70Z Performance of Urinary Filtration, Intermittent, Less than 6 Hours Per Day (ICD-10-PCS; 2020-02-17)
PROC: 0DB78ZX Excision of Stomach, Pylorus, Via Natural or Artificial Opening Endoscopic, Diagnostic (ICD-10-PCS; principal; 2020-02-18)
PROC: 057Y3ZZ Dilation of Upper Vein, Percutaneous Approach (ICD-10-PCS; 2020-02-18)
PROC: B5181ZZ Fluoroscopy of Superior Vena Cava using Low Osmolar Contrast (ICD-10-PCS; 2020-02-18)
PROC: B51W1ZZ Fluoroscopy of Dialysis Shunt/Fistula using Low Osmolar Contrast (ICD-10-PCS; 2020-02-18)
DX: K29.81 Duodenitis with bleeding (principal); K85.90 Acute pancreatitis without necrosis or infection, unspecified; N17.9 Acute kidney failure, unspecified; E11.22 Type 2 diabetes mellitus with diabetic chronic kidney disease; I12.0 Hypertensive chronic kidney disease with stage 5 chronic kidney disease or end stage renal disease; N18.6 End stage renal disease; E87.5 Hyperkalemia; D72.821 Monocytosis (symptomatic); K29.50 Unspecified chronic gastritis without bleeding; R74.8 Abnormal levels of other serum enzymes; E03.9 Hypothyroidism, unspecified; D64.9 Anemia, unspecified; H43.391 Other vitreous opacities, right eye; K80.20 Calculus of gallbladder without cholecystitis without obstruction; Y84.1 Kidney dialysis as the cause of abnormal reaction of the patient, or of later complication, without mention of misadventure at the time of the procedure; K26.4 Chronic or unspecified duodenal ulcer with hemorrhage; K29.00 Acute gastritis without bleeding; T82.858A Stenosis of other vascular prosthetic devices, implants and grafts, initial encounter; T82.838A Hemorrhage due to vascular prosthetic devices, implants and grafts, initial encounter; Y92.230 Patient room in hospital as the place of occurrence of the external cause; Z79.84 Long term (current) use of oral hypoglycemic drugs; Z87.11 Personal history of peptic ulcer disease; Z98.891 History of uterine scar from previous surgery; Z79.899 Other long term (current) drug therapy; Z99.2 Dependence on renal dialysis
CPT/HCPCS: 36415; 36902; 71045; 76937; 80048; 80053; 82150; 82962; 83735; 84100; 84132; 84484; 84703; 85025; 86850; 86870; 86900; 88305; 88312; 88313; 93005; 99152; 99153; 99291; C1725; C1766; C1769; C1887; C9113; J0696; J1644; J1815; J2250; J2270; J2405; J3010; J3490; Q9967; G0500

== ENCOUNTER 2021-05-28 18:37 | Emergency (ER) | payer MEDICAID ==
[~2021-05-28] VITALS: Ht 165.1 cm; Wt 82.0 kg
[~2021-05-28 18:37] MED LIST changes: +FURO80TA87 MT; +LEVO100T9 MT; +OMEP20TA15 MT; +OMEP20TA15 PO; +SUCR1TAB30 MT
[2021-05-28 18:50] VITALS: BP 162/57
== END 2021-05-28 20:07 | disposition left against medical advice (07) ==
LOC: ER 18:37
DX: R07.89 Other chest pain (principal); I13.2 Hypertensive heart and chronic kidney disease with heart failure and with stage 5 chronic kidney disease, or end stage renal disease; E11.22 Type 2 diabetes mellitus with diabetic chronic kidney disease; N18.6 End stage renal disease; I50.9 Heart failure, unspecified; Z99.2 Dependence on renal dialysis
CPT/HCPCS: 99283

== ENCOUNTER 2021-12-06 12:40 | Inpatient (IN) | payer MEDICAID ==
[~2021-12-06] VITALS: Ht 165.1 cm; Wt 97.8 kg
[~2021-12-06 12:40] MED LIST changes: +CEPH500C2 MT
[2021-12-06] MEDS ORDERED: ASPIRIN 325MG EC TABLET PO ONE (13:00)
[2021-12-06] MEDS ORDERED: CALCIUM CHLORIDE 1GM/10ML SYR IV ONE (13:15)
[2021-12-06] MEDS ORDERED: FENTANYL CITRATE/PF 50MCG/ML 2ML VIAL IV ONE (13:15)
[2021-12-06 13:33] LABS: HEMATOCRIT. 39.7 % (36.0-48.0); HEMOGLOBIN. 12.5 g/dL (12.0-16.0); MEAN CORPUSCULAR HEMOGLOBIN 27.8 pg (28.0-32.0); MEAN CORPUSCULAR VOLUME 88.2 fL (81.0-99.0); RED BLOOD CELL COUNT 4.51 mill/uL (4.2-5.4)
[2021-12-06 13:34] LABS: MEAN PLATELET VOLUME 9.6 fl (7.4-10.4); PLATELET 407 x1000/uL (130-400); RED CELL DISTRIBUTION WIDTH 17.8 % (11.6-14.6)
[2021-12-06 13:42] LABS: CHLORIDE 99 mEq/L (98-107)
[2021-12-06 13:46] LABS: HCG SCREEN NEGATIVE
[2021-12-06 13:48] LABS: PLATELET ESTIMATE INCREASED
[2021-12-06] MEDS ORDERED: SODIUM CHLORIDE 0.9% 500 ML IV ONE (14:45)
[2021-12-06] MEDS ORDERED: PIPERACILLIN/TAZ 3.375G PREMIX 50 ML IV ONE (14:45)
[2021-12-06 15:45] LABS: INR 1.1; PROTHROMBIN TIME 11.6 sec (9.6-11.0)
[2021-12-06] MEDS ORDERED: SKIN ADHESIVE 0.7 GM EA TOP ONE (15:58)
[2021-12-06] MEDS ORDERED: BUPIVACAINE HCL 0.5% (5MG/ML) 50ML ONE (15:58)
[2021-12-06] MEDS ORDERED: MORPHINE SULFATE 4 MG/ML CPJ (NOT FOR IM USE) IV PRN (16:30)
[2021-12-06] MEDS ORDERED: ONDANSETRON HCL 4MG/2ML INJ IV PRN ×3 (16:30→19:45)
[2021-12-06] MEDS ORDERED: HYDROMORPHONE HCL/PF 2MG/ML (OR) ONE (16:36)
[2021-12-06] MEDS ORDERED: ROCURONIUM BROMIDE 10MG/ML VIAL 5ML IV ONE (16:36)
[2021-12-06] MEDS ORDERED: PROPOFOL 200MG/20ML VIAL IV ONE (16:36)
[2021-12-06] MEDS ORDERED: SODIUM BICARBONATE 8.4% 1 MEQ/ML 50ML SYR IV ONE (16:57)
[2021-12-06] MEDS ORDERED: HYDROMORPHONE HCL/PF 2MG/ML CPJ IV PRN (17:15)
[2021-12-06] MEDS ORDERED: LABETALOL 5MG/ML SYR 20 MG/4 ML SYRINGE IV PRN (17:15)
[2021-12-06] MEDS ORDERED: MEPERIDINE HCL/PF 25MG/ML CPJ IV PRN (17:15)
[2021-12-06] MEDS ORDERED: NEOSTIGMINE METHYLSULFATE 1MG/ML 10 ML VIAL ONE (18:27)
[2021-12-06] MEDS ORDERED: GLYCOPYRROLATE 0.2 MG/ML 2ML VIAL ONE (18:29)
[2021-12-06] MEDS ORDERED: NALOXONE HCL 0.4MG/ML VIAL IV PRN (19:00)
[2021-12-06] MEDS ORDERED: ACETAMINOPHEN 650MG SUPP PR PRN (19:45)
[2021-12-06 20:15] VITALS: BP 174/75
[2021-12-06] MEDS: PANTOPRAZOLE SODIUM 40 MG/VIAL IV SCH (20:39)
[2021-12-06] MEDS: MORPHINE SULFATE 2 MG/ML CPJ (NOT FOR IM USE) IV PRN (20:40)
[2021-12-06 21:00] VITALS: BP 174/75
[2021-12-06] MEDS ORDERED: VANCOMYCIN 1,750 MG in DEXT 5% WATER 500 ML IV NR (21:00)
[2021-12-06] MEDS ORDERED: PIPERACILLIN/TAZ 3.375G PREMIX 50 ML IV NR (23:00)
[2021-12-06] MEDS: HYDROMORPHONE HCL/PF 2MG/ML CPJ IV PRN (23:08)
[2021-12-07] VITALS (11 sets, daily range): BP systolic 111–167; BP diastolic 61–85
[2021-12-07] MEDS ORDERED: HYDRALAZINE 20MG/ML VIAL IV PRN
[2021-12-07] MEDS: HYDROMORPHONE HCL/PF 2MG/ML CPJ IV PRN ×4 (02:26→19:32)
[2021-12-07] MEDS ORDERED: PIPERACILLIN/TAZOBACTAM 3.375 G in DEXTROSE 5% WATER 50 ML IV SCH (03:00)
[2021-12-07 07:05] LABS: HEMATOCRIT. 29.7 % (36.0-48.0); HEMOGLOBIN. 9.3 g/dL (12.0-16.0); MEAN CORPUSCULAR HEMOGLOBIN 27.6 pg (28.0-32.0); MEAN CORPUSCULAR VOLUME 88.2 fL (81.0-99.0); MEAN PLATELET VOLUME 10.3 fl (7.4-10.4); PLATELET 312 x1000/uL (130-400); RED BLOOD CELL COUNT 3.37 mill/uL (4.2-5.4); RED CELL DISTRIBUTION WIDTH 17.9 % (11.6-14.6)
[2021-12-07 07:29] LABS: CHLORIDE 98 mEq/L (98-107)
[2021-12-07] MEDS: PANTOPRAZOLE SODIUM 40 MG/VIAL IV SCH (08:19)
[2021-12-07] MEDS: ENOXAPARIN 40MG/0.4ML SYR SUBCUT SCH (08:20)
[2021-12-07] MEDS ORDERED: ENOXAPARIN 30MG/0.3ML SYR SUBCUT SCH (09:00)
[2021-12-07] MEDS ORDERED: ENALAPRIL 2.5MG TABLET PO NR (09:30)
[2021-12-07] MEDS ORDERED: INSULIN REGULAR (HUMULIN R) 300UNITS/3ML VIAL IV SCH (10:00)
[2021-12-07] MEDS ORDERED: DEXTROSE 50% WATER 50ML SYRINGE IV SCH (10:00)
[2021-12-07] MEDS ORDERED: DEXTROSE 50% WATER 50ML SYRINGE IV PRN (13:00)
[2021-12-07] MEDS ORDERED: DEXT 5%/0.9% NACL 1,000 ML IV SCH (13:30)
[2021-12-07] MEDS: MORPHINE SULFATE 2 MG/ML CPJ (NOT FOR IM USE) IV PRN ×2 (13:55→18:18)
[2021-12-07] MEDS: DIPHENHYDRAMINE 50MG/ML VIAL IV PRN ×2 (15:14→21:23)
[2021-12-07] MEDS: BLOOD SUGAR DIAGNOSTIC STRIP TEST SCH ×2 (16:51→21:59)
[2021-12-07] MEDS: INSULIN LISPRO 100 UNITS/ML SUBCUT SCH ×2 (17:20→21:00)
[2021-12-07] MEDS: DEXTROSE 5% WATER 1,000 ML IV SCH (19:30)
[2021-12-07] MEDS: LEVOTHYROXINE SODIUM 100 MCG/ VIAL IV SCH (19:30)
[2021-12-07 20:52] LABS: PLATELET ESTIMATE NORMAL
[2021-12-07] MEDS: PIPERACILLIN/TAZOBACTAM 3.375 G in DEXTROSE 5% WATER 50 ML IV SCH (21:23)
[2021-12-08] VITALS (11 sets, daily range): BP systolic 116–156; BP diastolic 61–93
[2021-12-08] MEDS: HYDROMORPHONE HCL/PF 2MG/ML CPJ IV PRN ×3 (04:39→21:34)
[2021-12-08] MEDS: DIPHENHYDRAMINE 50MG/ML VIAL IV PRN (05:58)
[2021-12-08] MEDS: BLOOD SUGAR DIAGNOSTIC STRIP TEST SCH ×4 (06:04→21:58)
[2021-12-08 06:59] LABS: HEMATOCRIT. 28.2 % (36.0-48.0); HEMOGLOBIN. 9.1 g/dL (12.0-16.0); MEAN CORPUSCULAR VOLUME 87.2 fL (81.0-99.0); MEAN PLATELET VOLUME 10.2 fl (7.4-10.4); PLATELET 336 x1000/uL (130-400); RED BLOOD CELL COUNT 3.23 mill/uL (4.2-5.4); RED CELL DISTRIBUTION WIDTH 17.5 % (11.6-14.6)
[2021-12-08] MEDS: INSULIN LISPRO 100 UNITS/ML SUBCUT SCH ×4 (07:20→21:00)
[2021-12-08] MEDS: PIPERACILLIN/TAZOBACTAM 3.375 G in DEXTROSE 5% WATER 50 ML IV SCH ×2 (08:25→21:33)
[2021-12-08] MEDS: PANTOPRAZOLE SODIUM 40 MG/VIAL IV SCH (08:25)
[2021-12-08] MEDS: ENOXAPARIN 40MG/0.4ML SYR SUBCUT SCH (08:26)
[2021-12-08] MEDS ORDERED: INSULIN REGULAR (HUMULIN R) UD 100 UNITS/ML SYR IV SCH (09:00)
[2021-12-08] MEDS ORDERED: DEXTROSE 50% WATER 50ML SYRINGE IV SCH (09:00)
[2021-12-08] MEDS: DEXTROSE 5% WATER 1,000 ML IV SCH (15:38)
[2021-12-08 16:35] LABS: PLATELET ESTIMATE NORMAL
[2021-12-08] MEDS ORDERED: EPOETIN ALFA-EPBX 4,000 UNIT/ML VIAL SUBCUT SCH (21:00)
[2021-12-08] MEDS: LEVOTHYROXINE SODIUM 100 MCG/ VIAL IV SCH (21:33)
[2021-12-08] MEDS ORDERED: EPOETIN ALFA-EPBX 10,000 UNIT/ML VIAL SUBCUT SCH (21:45)
[2021-12-09] VITALS (28 sets, daily range): BP systolic 128–169; BP diastolic 50–78
[2021-12-09] MEDS: DIPHENHYDRAMINE 50MG/ML VIAL IV PRN ×2 (00:38→16:52)
[2021-12-09] MEDS: HYDROMORPHONE HCL/PF 2MG/ML CPJ IV PRN ×5 (04:20→21:40)
[2021-12-09] MEDS: INSULIN LISPRO 100 UNITS/ML SUBCUT SCH ×4 (07:20→21:00)
[2021-12-09] MEDS: BLOOD SUGAR DIAGNOSTIC STRIP TEST SCH ×5 (07:39→21:12)
[2021-12-09 07:59] LABS: HEMATOCRIT. 24.7 % (36.0-48.0); HEMOGLOBIN. 7.9 g/dL (12.0-16.0); MEAN CORPUSCULAR HEMOGLOBIN 28.1 pg (28.0-32.0); MEAN CORPUSCULAR VOLUME 88.1 fL (81.0-99.0); MEAN PLATELET VOLUME 10.2 fl (7.4-10.4); PLATELET 321 x1000/uL (130-400); RED CELL DISTRIBUTION WIDTH 17.4 % (11.6-14.6)
[2021-12-09 08:07] LABS: CHLORIDE 101 mEq/L (98-107)
[2021-12-09] MEDS: PANTOPRAZOLE SODIUM 40 MG/VIAL IV SCH (08:41)
[2021-12-09] MEDS: ENOXAPARIN 40MG/0.4ML SYR SUBCUT SCH (09:00)
[2021-12-09] MEDS: PIPERACILLIN/TAZOBACTAM 3.375 G in DEXTROSE 5% WATER 50 ML IV SCH ×2 (09:01→21:12)
[2021-12-09] MEDS ORDERED: LIDOCAINE HCL 1% 20ML VIAL (Pyxis) INJ ONE (09:38)
[2021-12-09] MEDS ORDERED: IOHEXOL-300 100 ML BOTTLE ONE (09:38)
[2021-12-09] MEDS ORDERED: HEPARIN 1000 UNITS/ML 10ML ONE (09:39)
[2021-12-09] MEDS ORDERED: FENTANYL CITRATE/PF 50MCG/ML 2ML VIAL ONE (10:13)
[2021-12-09] MEDS ORDERED: FENTANYL CITRATE/PF 50MCG/ML 2ML VIAL IV NR (11:15)
[2021-12-09] MEDS ORDERED: VANCOMYCIN 500MG PREMIX 100 ML IV SCH (14:00)
[2021-12-09] MEDS: DEXTROSE 5% WATER 1,000 ML IV SCH (14:34)
[2021-12-09 17:06] LABS: PLATELET ESTIMATE NORMAL
[2021-12-09] MEDS: LEVOTHYROXINE SODIUM 100 MCG/ VIAL IV SCH (21:12)
[2021-12-10] VITALS: BP 163/64
[2021-12-10] MEDS: HYDRALAZINE 10 MG in SODIUM CHLORIDE 0.9% 49.5 ML IV PRN (00:32)
[2021-12-10] MEDS: HYDROMORPHONE HCL/PF 2MG/ML CPJ IV PRN ×4 (00:45→18:06)
[2021-12-10 03:54] VITALS: BP 150/52
[2021-12-10] MEDS: BLOOD SUGAR DIAGNOSTIC STRIP TEST SCH ×4 (06:39→21:00)
[2021-12-10] MEDS: DEXTROSE 5% WATER 1,000 ML IV SCH (06:39)
[2021-12-10] MEDS: INSULIN LISPRO 100 UNITS/ML SUBCUT SCH ×4 (07:50→21:19)
[2021-12-10 08:00] VITALS: BP 177/67
[2021-12-10] MEDS: PANTOPRAZOLE SODIUM 40 MG/VIAL IV SCH (08:53)
[2021-12-10] MEDS: PIPERACILLIN/TAZOBACTAM 3.375 G in DEXTROSE 5% WATER 50 ML IV SCH ×2 (08:54→20:35)
[2021-12-10] MEDS: ENOXAPARIN 40MG/0.4ML SYR SUBCUT SCH (08:54)
[2021-12-10 09:24] LABS: BASOPHILS % 0.8 % (0.0-2.0); EOSINOPHILS % 2.5 % (0.0-5.0); HEMATOCRIT. 23.9 % (36.0-48.0); HEMOGLOBIN. 7.5 g/dL (12.0-16.0); LYMPHOCYTES % 7.4 % (20.0-50.0); MEAN CORPUSCULAR HEMOGLOBIN 27.5 pg (28.0-32.0); MEAN CORPUSCULAR VOLUME 88.2 fL (81.0-99.0); MEAN PLATELET VOLUME 9.7 fl (7.4-10.4); MONOCYTES % 10.8 % (2.0-8.0); NEUTROPHILS % 78.5 % (40.0-76.0); PLATELET 320 x1000/uL (130-400); RED BLOOD CELL COUNT 2.71 mill/uL (4.2-5.4); RED CELL DISTRIBUTION WIDTH 17.8 % (11.6-14.6)
[2021-12-10] MEDS: WATER IV SCH ×2 (11:24→17:33)
[2021-12-10] MEDS: DEXTROSE 5% IV SCH ×2 (11:24→17:33)
[2021-12-10] MEDS: ENALAPRIL IV SCH ×2 (11:24→17:33)
[2021-12-10 12:00] VITALS: BP 142/49
[2021-12-10] MEDS ORDERED: HEPARIN SODIUM 1,000 UNIT/1ML VIAL IV NR (14:30)
[2021-12-10] MEDS: DIPHENHYDRAMINE 50MG/ML VIAL IV PRN (14:52)
[2021-12-10 16:00] VITALS: BP 125/63
[2021-12-10 20:00] VITALS: BP 168/63
[2021-12-10 20:25] LABS: HEPATITIS B SURFACE ANTIGEN NEGATIVE
[2021-12-10] MEDS: LEVOTHYROXINE SODIUM 100 MCG/ VIAL IV SCH (20:33)
[2021-12-10] MEDS: MORPHINE SULFATE 2 MG/ML CPJ (NOT FOR IM USE) IV PRN (20:34)
[2021-12-10] MEDS ORDERED: EPOETIN ALFA-EPBX 10,000 UNIT/ML VIAL SUBCUT SCH (21:00)
[2021-12-11] VITALS: BP 166/61
[2021-12-11] MEDS: DEXTROSE 5% IV SCH ×4 (01:08→18:14)
[2021-12-11] MEDS: ENALAPRIL IV SCH ×4 (01:08→18:14)
[2021-12-11] MEDS: WATER IV SCH ×4 (01:08→18:14)
[2021-12-11] MEDS: HYDROMORPHONE HCL/PF 2MG/ML CPJ IV PRN ×3 (02:27→14:58)
[2021-12-11] MEDS: DEXTROSE 5% WATER 1,000 ML IV SCH (03:30)
[2021-12-11 04:00] VITALS: BP 158/49
[2021-12-11] MEDS: BLOOD SUGAR DIAGNOSTIC STRIP TEST SCH ×3 (06:29→18:19)
[2021-12-11] MEDS: INSULIN LISPRO 100 UNITS/ML SUBCUT SCH ×3 (06:44→19:08)
[2021-12-11 08:00] VITALS: BP 155/47
[2021-12-11] MEDS: PANTOPRAZOLE SODIUM 40 MG/VIAL IV SCH (09:12)
[2021-12-11] MEDS: SEVELAMER CARBONATE 800 MG TABLET PO SCH ×3 (09:14→18:58)
[2021-12-11] MEDS: ENOXAPARIN 40MG/0.4ML SYR SUBCUT SCH (09:14)
[2021-12-11] MEDS: PIPERACILLIN/TAZOBACTAM 3.375 G in DEXTROSE 5% WATER 50 ML IV SCH (11:05)
[2021-12-11 12:00] VITALS: BP 162/62
[2021-12-11 12:11] LABS: BASOPHILS % 1.1 % (0.0-2.0); HEMATOCRIT. 25.2 % (36.0-48.0); HEMOGLOBIN. 8.1 g/dL (12.0-16.0); MEAN CORPUSCULAR HEMOGLOBIN 27.7 pg (28.0-32.0); MEAN CORPUSCULAR VOLUME 86.5 fL (81.0-99.0); MEAN PLATELET VOLUME 9.8 fl (7.4-10.4); MONOCYTES % 11.6 % (2.0-8.0); NEUTROPHILS % 72.3 % (40.0-76.0); PLATELET 364 x1000/uL (130-400); RED BLOOD CELL COUNT 2.91 mill/uL (4.2-5.4); RED CELL DISTRIBUTION WIDTH 17.8 % (11.6-14.6)
[2021-12-11] MEDS: HYDRALAZINE 10 MG in SODIUM CHLORIDE 0.9% 49.5 ML IV PRN (14:45)
[2021-12-11 16:00] VITALS: BP 165/64
[2021-12-11 19:38] VITALS: BP 150/53
== END 2021-12-11 21:15 | disposition home or self-care (01) | DRG 233 ==
LOC: ER 12:59 → 3WST 15:48 → ENRESERV 20:18 → CANBEDREQ 20:18 → 6EST 12-09 11:52
PROVIDERS: ADMIT Hospitalist; ATTEND Hospitalist
PROC: 0DTJ0ZZ Resection of Appendix, Open Approach (ICD-10-PCS; principal; 2021-12-06)
PROC: 0WJG4ZZ Inspection of Peritoneal Cavity, Percutaneous Endoscopic Approach (ICD-10-PCS; 2021-12-06)
PROC: 5A1D70Z Performance of Urinary Filtration, Intermittent, Less than 6 Hours Per Day (ICD-10-PCS; 2021-12-07)
PROC: 5A1D70Z Performance of Urinary Filtration, Intermittent, Less than 6 Hours Per Day (ICD-10-PCS; 2021-12-08)
PROC: 02HV33Z Insertion of Infusion Device into Superior Vena Cava, Percutaneous Approach (ICD-10-PCS; 2021-12-08)
PROC: B548ZZA Ultrasonography of Superior Vena Cava, Guidance (ICD-10-PCS; 2021-12-08)
PROC: B51W1ZZ Fluoroscopy of Dialysis Shunt/Fistula using Low Osmolar Contrast (ICD-10-PCS; 2021-12-09)
PROC: 05WY3JZ Revision of Synthetic Substitute in Upper Vein, Percutaneous Approach (ICD-10-PCS; 2021-12-09)
PROC: 3E04317 Introduction of Other Thrombolytic into Central Vein, Percutaneous Approach (ICD-10-PCS; 2021-12-09)
PROC: 5A1D70Z Performance of Urinary Filtration, Intermittent, Less than 6 Hours Per Day (ICD-10-PCS; 2021-12-10)
DX: K35.32 Acute appendicitis with perforation, localized peritonitis, and gangrene, without abscess (principal); I50.33 Acute on chronic diastolic (congestive) heart failure; N18.6 End stage renal disease; T82.858A Stenosis of other vascular prosthetic devices, implants and grafts, initial encounter; E44.0 Moderate protein-calorie malnutrition; K56.7 Ileus, unspecified; D62 Acute posthemorrhagic anemia; Y83.2 Surgical operation with anastomosis, bypass or graft as the cause of abnormal reaction of the patient, or of later complication, without mention of misadventure at the time of the procedure; E11.22 Type 2 diabetes mellitus with diabetic chronic kidney disease; Z20.822 Contact with and (suspected) exposure to COVID-19; I13.2 Hypertensive heart and chronic kidney disease with heart failure and with stage 5 chronic kidney disease, or end stage renal disease; E03.9 Hypothyroidism, unspecified; E87.5 Hyperkalemia; Z99.2 Dependence on renal dialysis; Z98.891 History of uterine scar from previous surgery; Z90.49 Acquired absence of other specified parts of digestive tract; Z53.31 Laparoscopic surgical procedure converted to open procedure; Z79.899 Other long term (current) drug therapy; Z68.35 Body mass index [BMI] 35.0-35.9, adult; Y92.89 Other specified places as the place of occurrence of the external cause
CPT/HCPCS: 36415; 36902; 71045; 74176; 76937; 80048; 80053; 80202; 82962; 83605; 83880; 84132; 84145; 84484; 84520; 84703; 85025; 85044; 86705; 86709; 86803; 86850; 86870; 86900; 87340; 87426; 88304; 93005; 93306; 99152; 99153; 99291; C1725; C1766; C1769; C1887; C9113; J0360; J0885; J1170; J1200; J1644; J1650; J1815; J2270; J2543; J2704; J2710; J3010; J3370; J3490; J7030; J7040; J7042; J7060; J7070; Q9967; G0500

== ENCOUNTER 2022-02-03 08:38 | Inpatient (IN) | payer MEDICAID ==
[~2022-02-03] VITALS: Ht 165.1 cm; Wt 93.7 kg
[2022-02-03] MEDS ORDERED: SODIUM BICARBONATE 8.4% 1 MEQ/ML 50ML SYR IV ONE (09:00)
[2022-02-03] MEDS ORDERED: INSULIN REGULAR (HUMULIN R) 300UNITS/3ML VIAL IV ONE (09:00)
[2022-02-03] MEDS ORDERED: DEXTROSE 50% WATER 50ML SYRINGE IV ONE (09:00)
[2022-02-03] MEDS ORDERED: ALBUTEROL (0.083%) 2.5MG/3ML NEB HHN ONE (09:00)
[2022-02-03] MEDS ORDERED: CALCIUM CHLORIDE 1GM/10ML SYR IV ONE (09:00)
[2022-02-03 09:14] LABS: HEMATOCRIT. 26.2 % (36.0-48.0); HEMOGLOBIN. 8.2 g/dL (12.0-16.0); MEAN CORPUSCULAR HEMOGLOBIN 27.1 pg (28.0-32.0); MEAN CORPUSCULAR VOLUME 86.5 fL (81.0-99.0); MEAN PLATELET VOLUME 8.5 fl (7.4-10.4); PLATELET 523 x1000/uL (130-400); RED BLOOD CELL COUNT 3.03 mill/uL (4.2-5.4); RED CELL DISTRIBUTION WIDTH 18.3 % (11.6-14.6)
[2022-02-03 09:22] LABS: INR 1.2; PROTHROMBIN TIME 12.3 sec (9.6-11.0)
[2022-02-03 09:30] LABS: CHLORIDE 99 mEq/L (98-107)
[2022-02-03 11:07] LABS: PLATELET ESTIMATE INCREASED
[2022-02-03] MEDS ORDERED: VANCOMYCIN 1G PREMIX 200 ML IV ONE (11:15)
[2022-02-03] MEDS ORDERED: PIPERACILLIN/TAZ 3.375G PREMIX 50 ML IV ONE (11:15)
[2022-02-03] MEDS ORDERED: VANCOMYCIN 1G PREMIX 200 ML IV SCH (11:30)
[2022-02-03] MEDS ORDERED: LEVOTHYROXINE SODIUM 125MCG TABLET PO SCH (14:00)
[2022-02-03 15:20] LABS: HEPATITIS B SURFACE ANTIGEN NEGATIVE
[2022-02-03] MEDS: CINACALCET HCL 60MG TABLET PO SCH (16:36)
[2022-02-03] MEDS: SEVELAMER CARBONATE 800 MG TABLET PO SCH (16:36)
[2022-02-03] MEDS ORDERED: INSULIN LISPRO 100 UNITS/ML SUBCUT SCH (17:50)
[2022-02-03] MEDS ORDERED: INSULIN GLARGINE 100 UNITS/ML SUBCUT SCH (21:00)
[2022-02-03] MEDS ORDERED: DEXTROSE 50% WATER 50ML SYRINGE IV NR (22:52)
[2022-02-04] MEDS ORDERED: ONDANSETRON HCL 4MG/2ML INJ IV PRN (08:00)
[2022-02-04] MEDS ORDERED: ACETAMINOPHEN 325MG TABLET PO PRN (08:00)
[2022-02-04] MEDS: HYDROCODONE/ACETAMINOPHEN 5/325MG TABLET PO PRN ×2 (08:05→15:39)
[2022-02-04] MEDS ORDERED: DEXTROSE 50% WATER 50ML SYRINGE IV PRN ×2 (08:15→11:45)
[2022-02-04] MEDS ORDERED: PIPERACILLIN/TAZ 3.375G PREMIX 50 ML IV NR (08:30)
[2022-02-04] MEDS ORDERED: NALOXONE HCL 0.4MG/ML VIAL IV PRN (08:30)
[2022-02-04] MEDS: CINACALCET HCL 60MG TABLET PO SCH (09:00)
[2022-02-04 10:00] VITALS: BP 128/60
[2022-02-04] MEDS ORDERED: PIPERACILLIN/TAZOBACTAM 3.375G in DEXT 5% WATER 50ML IV NR (10:00)
[2022-02-04 10:38] LABS: HEMATOCRIT. 28.4 % (36.0-48.0); HEMOGLOBIN. 8.6 g/dL (12.0-16.0); MEAN CORPUSCULAR HEMOGLOBIN 26.2 pg (28.0-32.0); MEAN CORPUSCULAR VOLUME 86.1 fL (81.0-99.0); MEAN PLATELET VOLUME 8.5 fl (7.4-10.4); PLATELET 645 x1000/uL (130-400)
[2022-02-04] MEDS ORDERED: VANCOMYCIN 2,000 MG in DEXT 5% WATER 500 ML IV NR (11:00)
[2022-02-04] MEDS ORDERED: INSULIN LISPRO 100 UNITS/ML SUBCUT SCH (11:30)
[2022-02-04 12:00] VITALS: BP 110/56
[2022-02-04] MEDS: SEVELAMER CARBONATE 800 MG TABLET PO SCH ×2 (12:10→16:57)
[2022-02-04] MEDS: INSULIN LISPRO 100 UNITS/ML SUBCUT SCH ×3 (12:11→20:51)
[2022-02-04 16:00] VITALS: BP 132/86
[2022-02-04 16:23] LABS: PLATELET ESTIMATE INCREASED
[2022-02-04] MEDS ORDERED: BLOOD SUGAR DIAGNOSTIC STRIP TEST SCH (16:30)
[2022-02-04] MEDS: BLOOD SUGAR DIAGNOSTIC STRIP TEST SCH ×2 (16:40→20:51)
[2022-02-04] MEDS: DIPHENHYDRAMINE 25MG CAPSULE PO PRN (18:09)
[2022-02-04 20:00] VITALS: BP 125/72
[2022-02-04] MEDS ORDERED: PIPERACILLIN/TAZOBACTAM 3.375 G in DEXTROSE 5% WATER 50 ML IV SCH (21:00)
[2022-02-04] MEDS: INSULIN GLARGINE 100 UNITS/ML SUBCUT SCH (22:00)
[2022-02-04] MEDS: PIPERACILLIN/TAZOBACTAM 3.375 G in DEXTROSE 5% WATER 50 ML IV SCH (22:48)
[2022-02-05] VITALS: BP 115/55
[2022-02-05 04:00] VITALS: BP 143/63
[2022-02-05] MEDS: BLOOD SUGAR DIAGNOSTIC STRIP TEST SCH ×4 (06:40→21:15)
[2022-02-05 07:38] LABS: BASOPHILS % 0.6 % (0.0-2.0); EOSINOPHILS % 5.1 % (0.0-5.0); HEMATOCRIT. 25.8 % (36.0-48.0); HEMOGLOBIN. 8.1 g/dL (12.0-16.0); LYMPHOCYTES % 7.2 % (20.0-50.0); MEAN CORPUSCULAR HEMOGLOBIN 27.1 pg (28.0-32.0); MEAN CORPUSCULAR VOLUME 86.7 fL (81.0-99.0); MEAN PLATELET VOLUME 8.5 fl (7.4-10.4); MONOCYTES % 7.4 % (2.0-8.0); NEUTROPHILS % 79.7 % (40.0-76.0); PLATELET 623 x1000/uL (130-400); RED BLOOD CELL COUNT 2.98 mill/uL (4.2-5.4)
[2022-02-05 08:00] VITALS: BP 150/61
[2022-02-05] MEDS: INSULIN LISPRO 100 UNITS/ML SUBCUT SCH ×4 (08:09→21:00)
[2022-02-05] MEDS: PIPERACILLIN/TAZOBACTAM 3.375 G in DEXTROSE 5% WATER 50 ML IV SCH ×2 (08:09→21:43)
[2022-02-05] MEDS: SEVELAMER CARBONATE 800 MG TABLET PO SCH ×3 (08:09→17:40)
[2022-02-05] MEDS: CINACALCET HCL 60MG TABLET PO SCH (09:00)
[2022-02-05 12:00] VITALS: BP 158/60
[2022-02-05] MEDS: HYDROCODONE/ACETAMINOPHEN 5/325MG TABLET PO PRN (12:54)
[2022-02-05] MEDS ORDERED: HEPARIN SODIUM 1,000 UNIT/1ML VIAL IV NR (15:30)
[2022-02-05 16:00] VITALS: BP 128/61
[2022-02-05] MEDS: DIPHENHYDRAMINE 25MG CAPSULE PO PRN (18:02)
[2022-02-05 20:00] VITALS: BP 145/57
[2022-02-05] MEDS: INSULIN GLARGINE 100 UNITS/ML SUBCUT SCH (21:16)
[2022-02-06] VITALS: BP 162/66
[2022-02-06 04:00] VITALS: BP 156/68
[2022-02-06] MEDS: BLOOD SUGAR DIAGNOSTIC STRIP TEST SCH ×2 (06:40→11:40)
[2022-02-06] MEDS: INSULIN LISPRO 100 UNITS/ML SUBCUT SCH ×2 (07:10→12:57)
[2022-02-06 08:00] VITALS: BP 152/54
[2022-02-06] MEDS ORDERED: CEPH500T MT (08:41)
[2022-02-06] MEDS: SEVELAMER CARBONATE 800 MG TABLET PO SCH ×2 (09:11→12:57)
[2022-02-06] MEDS: CINACALCET HCL 60MG TABLET PO SCH (09:11)
[2022-02-06] MEDS: PIPERACILLIN/TAZOBACTAM 3.375 G in DEXTROSE 5% WATER 50 ML IV SCH (09:12)
[2022-02-06 09:45] LABS: HEMATOCRIT. 24.8 % (36.0-48.0); HEMOGLOBIN. 7.7 g/dL (12.0-16.0); MEAN CORPUSCULAR HEMOGLOBIN 26.9 pg (28.0-32.0); MEAN CORPUSCULAR VOLUME 86.7 fL (81.0-99.0); MEAN PLATELET VOLUME 8.1 fl (7.4-10.4); PLATELET 546 x1000/uL (130-400); RED BLOOD CELL COUNT 2.87 mill/uL (4.2-5.4); RED CELL DISTRIBUTION WIDTH 19.2 % (11.6-14.6)
[2022-02-06 10:51] VITALS: BP 152/54
[2022-02-06 12:00] VITALS: BP 154/63
[2022-02-06 14:12] VITALS: BP 154/63
[2022-02-06 15:53] LABS: PLATELET ESTIMATE INCREASED
== END 2022-02-06 16:53 | disposition home health service (06) | DRG 720 ==
LOC: ER 08:59 → MICUSO 13:03 → EDBEDREQTM 13:12 → EDBEDREQ 13:12 → EDBEDREQSVC 13:12 → 7EST 02-04 09:04
PROVIDERS: ADMIT Internal Medicine; ATTEND Internal Medicine
PROC: 5A1D70Z Performance of Urinary Filtration, Intermittent, Less than 6 Hours Per Day (ICD-10-PCS; principal; 2022-02-03)
PROC: 5A1D70Z Performance of Urinary Filtration, Intermittent, Less than 6 Hours Per Day (ICD-10-PCS; 2022-02-05)
DX: A41.9 Sepsis, unspecified organism (principal); G93.41 Metabolic encephalopathy; I13.2 Hypertensive heart and chronic kidney disease with heart failure and with stage 5 chronic kidney disease, or end stage renal disease; E43 Unspecified severe protein-calorie malnutrition; E87.1 Hypo-osmolality and hyponatremia; E10.649 Type 1 diabetes mellitus with hypoglycemia without coma; D63.8 Anemia in other chronic diseases classified elsewhere; T81.31XA Disruption of external operation (surgical) wound, not elsewhere classified, initial encounter; E10.22 Type 1 diabetes mellitus with diabetic chronic kidney disease; D64.9 Anemia, unspecified; E03.9 Hypothyroidism, unspecified; I50.9 Heart failure, unspecified; N18.6 End stage renal disease; N25.81 Secondary hyperparathyroidism of renal origin; Y83.8 Other surgical procedures as the cause of abnormal reaction of the patient, or of later complication, without mention of misadventure at the time of the procedure; Z79.2 Long term (current) use of antibiotics; Z79.899 Other long term (current) drug therapy; Z90.49 Acquired absence of other specified parts of digestive tract; Z99.2 Dependence on renal dialysis; Z83.3 Family history of diabetes mellitus; Y92.89 Other specified places as the place of occurrence of the external cause; Z79.4 Long term (current) use of insulin
CPT/HCPCS: 36415; 71045; 80048; 80053; 80202; 82962; 83036; 83605; 84145; 84484; 85025; 86705; 86709; 86803; 87340; 93005; 99291; J1644; J1815; J2543; J3370; J3490; J7060; Q0163

== ENCOUNTER 2022-05-02 09:26 | Emergency (ER) | payer MEDICAID ==
[~2022-05-02] VITALS: Ht 165.1 cm; Wt 91.0 kg
[~2022-05-02 09:26] MED LIST changes: -CEPH500C2 MT; +CEPH500T MT
[2022-05-02] MEDS ORDERED: MORPHINE SULFATE 4 MG/ML CPJ (NOT FOR IM USE) IV ONE (12:30)
[2022-05-02] MEDS ORDERED: CLINDAMYCIN HCL 150MG CAPSULE PO ONE (12:30)
[2022-05-02 12:59] VITALS: BP 197/79
[2022-05-02] MEDS ORDERED: CLIN-116 MT (13:05)
[2022-05-02] MEDS ORDERED: TOPUD PO (13:05)
== END 2022-05-02 13:52 | disposition home or self-care (01) ==
LOC: ER 09:32
DX: L03.113 Cellulitis of right upper limb (principal); I11.0 Hypertensive heart disease with heart failure; I50.9 Heart failure, unspecified; E11.9 Type 2 diabetes mellitus without complications; D64.9 Anemia, unspecified; Z90.49 Acquired absence of other specified parts of digestive tract; Z98.890 Other specified postprocedural states; Z79.899 Other long term (current) drug therapy
CPT/HCPCS: 96374; 99283; J2270